=== PATIENT | male | born 1995 | race Two or more races ===

== ENCOUNTER → 2018-06-14 | Outpatient (CLI) | payer OTHER ==
[~2018-06-14] MED LIST: ERYT1OIN6 OP; LIDOCAINE 1% Multi-Dose 20 ML VIAL. ONE; PRED50TA PO; cefTRIAXone IM 1 GM VIAL IM ONE
[2018-06-14 18:15] VITALS: BP 118/80
== END | disposition home or self-care (01) ==
LOC: OPINF 17:59
PROVIDERS: ATTEND Family Medicine
DX: A64 Unspecified sexually transmitted disease (principal)
CPT/HCPCS: 96372; J0696

== ENCOUNTER 2018-09-02 18:18 | Emergency (ER) | payer OTHER ==
[2018-09-02 18:18] VITALS: BP 120/63
--- NOTE | 2018-09-02 18:23 | ED.ADGEN ---
Adult General Chief Complaint Chief Complaint ".. I was playing basket ball out side.. and it got windy.. and the next thing I knew... my eyes started itching.,..and got all red..and swollen..." HPI HPI Patient is a 23 year old male who presents with above hx and complaints of acute onset Sunday bilateral conjunctivitis. Patient does have bilateral mild injection. Does have scleral conjunctiva edema. Patient denies any vision c hanges. Patient currently has 20/30 in both eyes. See nursing for daily use. No history of travel. No history of specific ill contacts. No history immunosuppression.Pt. does wears glasses but currently has not been wearing them because they broke .. Patient normally follows at [facility]. Review of Systems Review of Systems Constitutional: Denies fever or chills [] Eyes: Denies change in visual acuity,. Patient complains of redness and itching. Patient denies eye pain [] HENT: Denies nasal congestion or sore throat [] Respiratory: Denies cough or shortness of breath [] Cardiovascular: No additional information not addressed in HPI [] GI: Denies abdominal pain, nausea, vomiting, bloody stools or diarrhea [] : Denies dysuria or hematuria [] Musculoskeletal: Denies back pain or joint pain [] Integument: Denies rash or skin lesions [] Neurologic: Denies headache, focal weakness or sensory changes [] Endocrine: Denies polyuria or polydipsia [] All other systems were reviewed and found to be within normal limits, except as documented in this note. Family History Family History Noncontributory Current Medications Current Medications Current Medications Medications (Trade) Dose Ordered Sig/Kb Start Time Stop Time Status Last Admin Dose Admin Erythromycin (Romycin) 0.25 inch 1X ONCE 09/02/18 19:15 09/02/18 19:18 DC 09/02/18 19:13 0.25 INCH Phenylephrine HCl (Mydfrin) 2 drop 1X ONCE 09/02/18 19:15 09/02/18 19:18 DC 09/02/18 19:12 2 DROP Prednisone (Prednisone) 50 mg 1X ONCE 09/02/18 19:00 09/02/18 19:01 DC 09/02/18 19:12 50 MG Allergies Allergies Allergies Coded Allergies Type Severity Reaction Last Updated Verified No Known Drug Allergies 09/02/18 No Physical Exam Physical Exam Constitutional: Well developed, well nourished, mild distress, non-toxic appearance. [] HENT: Normocephalic, atraumatic, bilateral external ears normal, oropharynx moist, no oral exudates, nose normal. [] Eyes: PERRLA, EOMI, conjunctiva injected, no discharge. [] Neck: Normal range of motion, no tenderness, supple, no stridor. [] Cardiovascular:Heart rate regular rhythm, no murmur [] Lungs & Thorax: Bilateral breath sounds clear to auscultation [] Abdomen: Bowel sounds normal, soft, no tenderness, no masses, no pulsatile masses. [] Skin: Warm, dry, no erythema, no rash. [] Back: No tenderness, no CVA tenderness. [] Extremities: No tenderness, no cyanosis, no clubbing, ROM intact, no edema. [] Neurologic: Alert and oriented X 3, normal motor function, normal sensory function, no focal deficits noted. [] Psychologic: Affect anxious, judgement normal, mood normal. [] Current Patient Data Vital Signs Vital Signs Date Time Temp Pulse Resp B/P (MAP) Pulse Ox O2 Delivery O2 Flow Rate FiO2 09/02/18 18:18 98.3 74 18 95 Room Air EKG EKG [] Radiology/Procedures Radiology/Procedures [] Course & Med Decision Making Course & Med Decision Making Pertinent Labs and Imaging studies reviewed. (See chart for details). Patient follow-up primary care. Patient follow-up ophthalmology. Patient to take prednisone 50 mg a day for 5 days. Patient return of any concerns. Patient use small amount of erythromycin 4 times a day. Patient to not rub eyes. Pt. to take benadryl 25- 50 four times a day of itching. [] Final Impression Final Impression 1. Allergic conjunctivitis[] Dragon Disclaimer Dragon Disclaimer This electronic medical record was generated, in whole or in part, using a voice recognition dictation system. Discharge Summary Visit Information Final Diagnosis Problems Medical Problems: (1) Conjunctivitis Status: Acute Brief Hospital Course Allergies Allergies Coded Allergies Type Severity Reaction Last Updated Verified No Known Drug Allergies 09/02/18 No Vital Signs Vital Signs Date Time Temp Pulse Resp B/P (MAP) Pulse Ox O2 Delivery O2 Flow Rate FiO2 09/02/18 18:18 98.3 74 18 95 Room Air Brief Hospital Course Mr. Oglesby is a 23 old male who presented with allergic conjunctivitis. Discharge Information Condition at Discharge: Stable Disposition/Orders: D/C to Home Dischare Medications Current Medications Prednisone (Prednisone) 50 mg 1X ONCE PO Last administered on 09/02/18at 19:12; Admin Dose 50 MG; Start 09/02/18 at 19:00; Stop 09/02/18 at 19:01; Status DC Phenylephrine HCl (Mydfrin) 20 drop STK-MED ONCE .ROUTE ; Start 09/02/18 at 18:50; Stop 09/02/18 at 18:51; Status DC Erythromycin (Romycin) 1 inch STK-MED ONCE .ROUTE ; Start 09/02/18 at 18:51; Stop 09/02/18 at 18:52; Status DC Erythromycin (Romycin) 0.25 inch 1X ONCE OU Last administered on 09/02/18at 19:13; Admin Dose 0.25 INCH; Start 09/02/18 at 19:15; Stop 09/02/18 at 19:18; Status DC Phenylephrine HCl (Mydfrin) 2 drop 1X ONCE OU Last administered on 09/02/18at 19:12; Admin Dose 2 DROP; Start 09/02/18 at 19:15; Stop 09/02/18 at 19:18; Status DC Active Scripts Active Prednisone 50 Mg Tablet 50 Mg PO DAILY 5 Days Erythromycin (Erythromycin Base) 1 Gm Oint...g. 1 Gm OP QID 7 Days Dragon Disclaimer This chart was dictated in whole or in part using Voice Recognition software in a busy, high-work load, and often noisy Emergency Department environment. It may contain unintended and wholly unrecognized errors or omissions. GUERA XIAO MD September 02, 2018 18:23
[2018-09-02] MEDS ORDERED: PHENYLEPHRINE 2.5% OPHTH SOLUTION 2ML BOTTLE. ONE (18:50)
[2018-09-02] MEDS ORDERED: ERYTHROMYCIN 0.5% OPHTH OINTMENT 1GM TUBE. ONE (18:51)
[2018-09-02] MEDS ORDERED: ERYT1OIN6 OP (18:55)
[2018-09-02] MEDS ORDERED: PRED50TA PO (18:55)
[2018-09-02] MEDS ORDERED: predniSONE 10 MG TABLET PO ONE (19:00)
[2018-09-02] MEDS ORDERED: ERYTHROMYCIN 0.5% OPHTH OINTMENT 1GM TUBE. OU ONE (19:15)
[2018-09-02] MEDS ORDERED: PHENYLEPHRINE 2.5% OPHTH SOLUTION 2ML BOTTLE. OU ONE (19:15)
== END 2018-09-02 19:15 | disposition home or self-care (01) ==
LOC: ER 18:18
DX: H10.13 Acute atopic conjunctivitis, bilateral (principal)
CPT/HCPCS: 99284; J7512

== ENCOUNTER 2020-09-05 05:13 | Emergency (ER) | payer OTHER ==
[~2020-09-05] VITALS: Ht 190.5 cm; Wt 89.2 kg
[~2020-09-05 05:13] MED LIST changes: -LIDOCAINE 1% Multi-Dose 20 ML VIAL. ONE; -cefTRIAXone IM 1 GM VIAL IM ONE
--- NOTE | 2020-09-05 05:18 | PHYS DOC ---
Past History Past Medical History: No Pertinent History Past Surgical History: No Surgical History Alcohol Use: Occasionally Drug Use: None General Adult HPI: HPI: " I was working out in the wt. room yesterday.. and I think I pulled a musc le.."or something.. hurting more today than yesterday.. here in my Lt shoulder.. 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 Patient states while using a rowing machine he felt something tear. Patient normally in good health. No recent travel overseas. No specific blunt trauma. Patient denies any history immunosuppression. No significant ill cont acts. Did take ibuprofen earlier with minimal relief. Patient has a history of cardiac issues. With him or family members. Patient does not smoke tobacco. Does not have hypertension. Does have obvious muscle spasms along left trapezius to lower edge of scapula. No true midline tenderness. Distal neurovascular intact. DTRs +2. No history of fever or chills. Normally follo ws at [facility] Review of Systems: Review of Systems: Constitutional: Denies fever or chills Eyes: Denies change in visual acuity HENT: Denies nasal congestion or sore throat Respiratory: Denies cough or shortness of breath Cardiovascular: Denies chest pain or edema GI: Denies abdominal pain, nausea, vomiting, bloody stools or diarrhea : Denies dysuria Musculoskeletal: Complains of left shoulder blade and trapezius back pain Integument: Denies rash Neurologic: Denies headache, focal weakness or sensory changes Endocrine: Denies polyuria or polydipsia Lymphatic: Denies swollen glands Psychiatric: Denies depression or anxiety Family History: Family History: Noncontributory to presentation Current Medications: Current Meds: See nursing for home meds Allergies: Allergies: Allergies Coded Allergies Type Severity Reaction Last Updated Verified No Known Drug Allergies 09/02/18 No Physical Exam: PE: Constitutional: Well developed, well nourished, moderate acute distress, non- toxic appearance. [] HENT: Normocephalic, atraumatic, bilateral external ears normal, oropharynx moist, no oral exudates, nose normal. [] Eyes: PERRLA, EOMI, conjunctiva normal, no discharge. [] Neck: Normal range of motion, left trapezius tenderness, supple, no stridor. [] Cardiovascular:Heart rate regular rhythm, no murmur [] Lungs & Thorax: Bilateral breath sounds are apex on auscultation [] Abdomen: Bowel sounds normal, soft, no tenderness, no masses, no pulsatile masses. [] Skin: Warm, dry, no erythema, no rash. [] Back: No tenderness, no CVA tenderness. Except left trapezius tenderness as per PI Extremities: No tenderness, no cyanosis, no clubbing, ROM intact, no edema. [] Neurologic: Alert and oriented X 3, normal motor function, normal sensory function, no focal deficits noted. [] Psychologic: Affect anxious, judgement normal, mood normal. [] EKG: EKG: My interpretation EKG shows a sinus rhythm at 62 bpm. No acute morphology. [] Radiology/Procedures: Radiology/Procedures: [][place] [address] IMAGING REPORT Signed PATIENT: BALWINDER AGUILERA ACCOUNT: [id number] : 1995 LOCATION: ER AGE: 25 SEX: M EXAM STATUS: REG ER ORD. PHYSICIAN: GUERA XIAO MD REASON: chest wall pain PROCEDURE: CHEST PA & LATERAL EXAM: PA and Lateral Views of the Chest DATE: 09/05/2020 6:25 AM INDICATION: Reason: chest wall pain / Spl. Instructions: / History: COMPARISON: No Prior FINDINGS: The heart is not enlarged. Mediastinal and hilar contours are normal. No focal parenchymal airspace opacity. No pleural effusion or pneumothorax. IMPRESSION: However clear chest Electronically signed by: Lucho Sandy MD (09/05/2020 6:34 AM) [facility] DICTATED AND SIGNED BY: LUCHO SANDY MD DATE: 09/05/20 0634 CC: GUERA XIAO MD; PCP,NO ~MTH0 0 Heart Score: C/O Chest Pain: N/A HEART Score for Chest Pain: HEART Score for Chest Pain Response (Comments) Value History Slighlty/Non-Suspicious 0 ECG Normal 0 Age < 45 0 Risk Factors No Risk Factors 0 Total 0 Risk Factors: Risk Factors: DM, Current or recent (<one month) smoker, HTN, HLP, family history of CAD, obesity. Risk Scores: Score 0 - 3: 2.5% MACE over next 6 weeks - Discharge Home Score 4 - 6: 20.3% MACE over next 6 weeks - Admit for Clinical Observation Score 7 - 10: 72.7% MACE over next 6 weeks - Early Invasive Strategies Course & Med Decision Making: Course & Med Decision Making Pertinent Labs and Imaging studies reviewed. (See chart for details) Patient use ice packs as needed. Patient take Tylenol and ibuprofen for pain. Massage. Follow-up primary care. Follow-up [facility]. Return if any concerns. Impression: 1. Trapezius Muscle spasms and muscle strain [] Dragon Disclaimer: Dragon Disclaimer: This electronic medical record was generated, in whole or in part, using a voice recognition dictation system. Departure Departure: Referrals: PCP,NO (PCP) [place] Disclaimer This chart was dictated in whole or in part using Voice Recognition software in a busy, high-work load, and often noisy Emergency Department environment. It may contain unintended and wholly unrecognized errors or omissions. GUERA XIAO MD September 05, 2020 05:18
[2020-09-05 05:30] VITALS: BP 128/65
[2020-09-05] MEDS: KETOROLAC 60 MG/2 ML VIAL. IM ONE (06:07)
--- NOTE | 2020-09-05 06:14 | EKG ---
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
--- NOTE | 2020-09-05 06:36 | RAD ---
EXAM: PA and Lateral Views of the Chest DATE: 09/05/2020 6:25 AM INDICATION: Reason: chest wall pain / Spl. Instructions: / History: COMPARISON: No Prior FINDINGS: The heart is not enlarged. Mediastinal and hilar contours are normal. No focal parenchymal airspace opacity. No pleural effusion or pneumothorax. IMPRESSION: However clear chest Electronically signed by: Lucho Sandy MD (09/05/2020 6:34 AM) DREW
== END 2020-09-05 06:49 | disposition home or self-care (01) ==
LOC: ER 05:13
DX: S46.891A Other injury of other muscles, fascia and tendons at shoulder and upper arm level, right arm, initial encounter (principal); X50.9XXA Other and unspecified overexertion or strenuous movements or postures, initial encounter; Y93.89 Activity, other specified; Y92.89 Other specified places as the place of occurrence of the external cause; Y99.8 Other external cause status
CPT/HCPCS: 71046; 93005; 96372; 99283; J1885

== ENCOUNTER 2021-01-12 15:30 | Emergency (ER) | payer OTHER ==
[~2021-01-12] VITALS: Ht 190.5 cm; Wt 91.4 kg
[2021-01-12 15:40] VITALS: BP 138/95
--- NOTE | 2021-01-12 16:10 | PHYS DOC ---
Past History Past Medical History: No Pertinent History (LARA NICOLAS APRN) Past Surgical History: No Surgical History (LARA NICOLAS APRN) Alcohol Use: None Drug Use: None (LARA NICOLAS APRN) General Adult EDM: Chief Complaint: PENIS PROBLEM HPI: HPI: 25-year-old male patient presents today with penile pain. Patient states that 2 weeks ago patient had unprotected sex with girlfriend and at the time she had a yeast infection, patient states during intercourse he "got a cut" on the tip of his penis and since that time he has had increased pain swelling at that site. Patient states that he was tested 1 week ago for STI and he states he was negative and not treated for anything. Patient also has a area on shaft that is reddened and discolored in the middle (LARA NICOLAS APRN) Review of Systems: Review of Systems: Constitutional: Denies fever or chills Eyes: Denies change in visual acuity HENT: Denies nasal congestion or sore throat Respiratory: Denies cough or shortness of breath Cardiovascular: Denies chest pain or edema GI: Denies abdominal pain, nausea, vomiting, bloody stools or diarrhea : Denies dysuria, reports swelling, pain and redness at tip of penis Musculoskeletal: Denies back pain or joint pain Integument: Denies rash Neurologic: Denies headache, focal weakness or sensory changes Endocrine: Denies polyuria or polydipsia Lymphatic: Denies swollen glands Psychiatric: Denies depression or anxiety (LARA NICOLAS APRN) Allergies: Allergies: Allergies Coded Allergies Type Severity Reaction Last Updated Verified No Known Drug Allergies 09/02/18 No (LARA NICOLAS APRN) Physical Exam: PE: Constitutional: Well developed, well nourished, no acute distress, non-toxic appearance. [] Neurologic: Alert and oriented X 3, normal motor function, normal sensory function, no focal deficits noted. [] Psychologic: Affect normal, judgement normal, mood normal. [ Genital exam: Uncircumcised penis with white drainage noted, excoriated area noted at the tip, swelling of foreskin noted. No scrotal pain] (LARA NICOLAS APRN) Current Patient Data: Vital Signs: Vital Signs Date Time Temp Pulse Resp B/P (MAP) Pulse Ox O2 Delivery O2 Flow Rate FiO2 01/12/21 15:40 97.6 67 20 138/95 (109) 97 Room Air (LARA NICOLAS APRN) EKG: EKG: [] (LARA NICOLAS APRN) Radiology/Procedures: Radiology/Procedures: [] (LARA NICOLAS APRN) Heart Score: C/O Chest Pain: N/A Risk Factors: Risk Factors: DM, Current or recent (<one month) smoker, HTN, HLP, family history of CAD, obesity. Risk Scores: Score 0 - 3: 2.5% MACE over next 6 weeks - Discharge Home Score 4 - 6: 20.3% MACE over next 6 weeks - Admit for Clinical Observation Score 7 - 10: 72.7% MACE over next 6 weeks - Early Invasive Strategies (LARA NICOLAS APRN) Course & Med Decision Making: Course & Med Decision Making Pertinent Labs and Imaging studies reviewed. (See chart for details) Urine sent for GC and chlamydia results will be pending. Patient elected not to be treated for GC chlamydia due to recent testing but would be open to taking by mouth medications if test turned out positive. Spoke with patient at length on the care of penis and the importance of cleaning with mild soap and water and apply medication as directed. Patient verbalized understanding of the plan of care [] (LARA NICOLAS APRN) Dragon Disclaimer: Dragon Disclaimer: This electronic medical record was generated, in whole or in part, using a voice recognition dictation system. (LARA NICOLAS APRN) Attending Co-Sign The patient was seen and interviewed as well as examined at the bedside. The chart was reviewed. The case was discussed. Agree with the plan of care. (ANIA SHAH DO) Departure Departure: Impression: Primary Impression: Balanitis Disposition: HOME / SELF CARE / HOMELESS Condition: STABLE Referrals: SUNG ORTIZ DO (PCP) Patient Instructions: Balanitis and Foreskin Hygiene Additional Instructions: Utilize topical medication twice daily for 7 to 14 days Do not have unprotected sex until penis is healed Follow-up with primary care physician if symptoms do not resolve Scripts Clotrimazole (CLOTRIMAZOLE) 15 Gm Cream..g. 1 RACHEL TP BID for rash for 14 Days, #30 GM 1 Refill use for 14 days Prov: LARA NICOLAS APRN 01/12/21 LARA NICOLAS APRN Jan 12, 2021 16:10 ANIA SHAH DO Jan 12, 2021 17:39
[2021-01-12] MEDS ORDERED: CLOT15CR23 TP (16:25)
[2021-01-12 16:31] LABS: BACTERIA,URINE 0 /HPF (0-FEW); BILIRUBIN,URINE NEG (NEG); CLARITY,URINE CLEAR; COLOR,URINE YELLOW; GLUCOSE,URINE NEG (NEG); NITRITE,URINE NEG (NEG); UROBILINOGEN,URINE 0.2 mg/dL (0.2 mg/dL)
== END 2021-01-12 16:30 | disposition home or self-care (01) ==
LOC: ER 15:30
DX: N48.1 Balanitis (principal)
CPT/HCPCS: 36415; 81001; 87491; 87591; 99283